=== PATIENT | female | born 1975 | race Two or more races ===

== ENCOUNTER 2016-10-15 00:36 | Emergency (ER) | payer MEDICAID ==
[~2016-10-15] VITALS: Ht 165.1 cm; Wt 77.1 kg
[2016-10-15 01:29] VITALS: BP 127/78
[2016-10-15 04:25] LABS: Basophils # (auto) 0 uL; Basophils % (auto) 0.7 % (0.0-2.0); DEFINITIVE VIEW TRANSMISSION; Eosinophils # (auto) 0.1 uL; Hematocrit 38.3 % (36.0-46.0); Hemoglobin 12.8 g/dL (12.2-16.2); Lymphocytes # (auto) 1.1 uL; Lymphocytes % (auto) 17.7 % (10.0-50.0); Mean Corpuscular Hemoglobin 27.7 pg (28.0-32.0); Mean Corpuscular Hgb Conc. 33.6 g/dL (32.0-36.0); Mean Corpuscular Volume 82.6 fL (80.0-100.0); Mean Platelet Volume 7.8 fL (7.4-10.4); Monocytes # (auto) 0.4 uL; Monocytes % (auto) 7.5 % (0.0-12.0); Neutrophils # (auto) 4.4 uL; Neutrophils % (auto) 73.1 % (37.0-80.0); Platelet Count (auto) 347 10^3/uL (140-450); Red Cell Distribution Width 19.4 % (11.6-16.0)
[2016-10-15 04:40] LABS: Albumin 3.7 g/dL (3.4-5.0); Anion Gap 8 (5-15); Aspartate Aminotransferase 25 U/L (15-37); BUN/Creatinine Ratio 15.6; Blood Urea Nitrogen 10 mg/dL (7-18); Carbon Dioxide 25 mmol/L (21-32); Chloride 108 mmol/L (98-107); GFR African American 130 mL/min; GFR Non-African American 108 mL/min; Glucose 101 mg/dL (74-106); Magnesium 2.2 mg/dL (1.6-2.6); Potassium 3.5 mmol/L (3.5-5.1); Sodium 141 mmol/L (136-145)
[2016-10-15 04:45] LABS: Alkaline Phosphatase 69 U/L (45-117); Bilirubin, Total 0.3 mg/dL (0.2-1.0); Total Protein 7.8 g/dL (6.4-8.2)
== END 2016-10-15 09:24 | disposition left against medical advice (07) ==
LOC: ER 00:40
DX: F41.9 Anxiety disorder, unspecified (principal); R07.9 Chest pain, unspecified; R06.02 Shortness of breath; Z53.21 Procedure and treatment not carried out due to patient leaving prior to being seen by health care provider
CPT/HCPCS: 36415; 71020; 80053; 83735; 84443; 84484; 85025; 93005

== ENCOUNTER 2024-05-16 18:17 | Emergency (ER) | payer MEDICAID ==
[~2024-05-16] VITALS: Ht 172.7 cm; Wt 81.0 kg
[2024-05-16] MEDS: DICYCLOMINE HCL (10MG/ML) 2 ML AMPULE IM ONE (19:16)
[2024-05-16] MEDS: ONDANSETRON ODT 4 MG TAB PO ONE (19:16)
[2024-05-16 19:20] VITALS: BP 128/75; PULSE 78; RESP 18; TEMP 97.8; O2SAT 97
[2024-05-16 19:40] LABS: Basophils # (auto) 0.1 10 ^3/uL (0-0.2); Eosinophils # (auto) 0.1 10 ^3/uL (0-0.8); Hemoglobin 10.7 g/dL (12.2-16.2); Lymphocytes # (auto) 1.3 10 ^3/uL (0.4-5.4); Monocytes # (auto) 0.5 10 ^3/uL (0-1.3); Neutrophils # (auto) 3.7 10 ^3/uL (1.6-8.6)
[2024-05-16 19:42] LABS: Basophils % (auto) 1.8 % (0.0-2.0); Eosinophils % (auto) 1.8 % (0.0-7.0); Hematocrit 33.1 % (36.0-46.0); Lymphocytes % (auto) 23.3 % (10.0-50.0); Mean Corpuscular Hemoglobin 23.5 pg (28.0-32.0); Mean Corpuscular Hgb Conc. 32.1 g/dL (32.0-36.0); Monocytes % (auto) 8.1 % (0.0-12.0); Platelet Count (auto) 419 10^3/uL (140-450); Red Blood Cells 4.54 10^6/uL (4.0-5.20); Red Cell Distribution Width 16.1 % (11.8-14.3); White Blood Cell 5.8 10^3/uL (4.4-10.8)
[2024-05-16 19:54] LABS: Chloride 107 mmol/L (98-107); Potassium 3.7 mmol/L (3.5-5.1); Sodium 140 mmol/L (136-145)
[2024-05-16 19:55] LABS: Anion Gap 6 (5-15); Calcium 9.5 mg/dL (8.7-10.4); Carbon Dioxide 27 mmol/L (20-31)
[2024-05-16 20:00] LABS: Urine Bacteria FEW /hpf (None Seen); Urine Blood 1+ /uL (Negative); Urine Clarity Turbid (Clear); Urine Color Light-Yellow (Yellow); Urine Mucus FEW (None Seen); Urine Protein, UAD Negative (Negative); Urine Specific Gravity 1.017 (1.001-1.035); Urine Urobilinogen Normal (Negative); Urine WBC 31 /hpf (0 - 5); Urine pH 5.5 (5.0-9.0)
[2024-05-16 20:00] LABS: BUN/Creatinine Ratio 15.2 (10.0-20.0); Blood Urea Nitrogen 10 mg/dL (9-23); Glucose 92 mg/dL (74-106); Lipase 34 U/L (12-53)
[2024-05-16] MEDS ORDERED: DICY10CA PO (20:29)
[2024-05-16] MEDS ORDERED: NITR-87 PO (20:29)
[2024-05-16] MEDS ORDERED: ZOFR4T PO (20:29)
[2024-05-16] MEDS: NITROFURANTOIN 100 mg CAP PO ONE (20:39)
== END 2024-05-16 20:40 | disposition home or self-care (01) ==
LOC: ER 18:17
DX: N39.0 Urinary tract infection, site not specified (principal); Z88.0 Allergy status to penicillin
CPT/HCPCS: 36415; 80048; 81001; 83690; 85025; 96372; 99283; J0500; Q0162